=== PATIENT | female | born 1970 | race Caucasian/White ===

== ENCOUNTER → 2017-01-31 | Outpatient (CLI) | payer OTHER, MEDICAID | LOC: CIMAGING 17:42 | PROVIDERS: ATTEND Family Medicine | DX: N81.4 Uterovaginal prolapse, unspecified (principal) | CPT/HCPCS: 76856-PO ==

== ENCOUNTER → 2017-06-01 | Outpatient (CLI) | payer OTHER, MEDICAID | LOC: CIMAGING 18:04 | PROVIDERS: ATTEND Family Medicine | DX: M79.641 Pain in right hand (principal) | CPT/HCPCS: 73130-PO ==

== ENCOUNTER → 2017-10-26 | Outpatient (CLI) | payer OTHER, MEDICAID ==
[~2017-10-26] MED LIST: IOPAMIDOL (ISOVUE-300) 100 ML BTL ONE
== END ==
LOC: CIMAGING 12:42
PROVIDERS: ATTEND Family Medicine
DX: K59.00 Constipation, unspecified (principal)
CPT/HCPCS: 74177; Q9967

== ENCOUNTER → 2018-08-28 | Outpatient (CLI) | payer OTHER | LOC: SUPIMAGING 08:21 → EDSTATUS 16:22 | PROVIDERS: ATTEND Family Medicine | DX: M79.642 Pain in left hand (principal) | CPT/HCPCS: 73130-PN ==